=== PATIENT | female | born 1955 | race Hispanic/Latino ===

== ENCOUNTER 2019-06-01 14:33 | Emergency (ER) | payer SELFPAY ==
[~2019-06-01] VITALS: Ht 152.4 cm; Wt 86.2 kg
--- OUTSIDE RECORDS SUMMARY | 2019-06-01 14:36 | XMS REPORT ---
Author Author [facility] Address Unknown Phone Unavailable Care Team Providers Care Junior Systems Analyst Name Role Phone Unavailable Unavailable Problems This patient has no known problems. Allergies, Adverse Reactions, Alerts This patient has no known allergies or adverse reactions. Medications This patient has no known medications. Encounters Start Date/Time End Date/Time Encounter Type Admission Type Attending [facility] Care Department Encounter ID 2019-06-03 00:00:00 2019-06-03 00:00:00 Outpatient [facility] [id number] 2019-05-07 12:26:44 2019-05-07 12:26:44 Outpatient [facility] [id number] 2019-05-07 00:00:00 2019-05-07 00:00:00 Outpatient [facility] [id number] 2019-04-12 00:00:00 2019-04-12 00:00:00 Outpatient [facility] [id number] 2019-03-25 00:00:00 2019-03-25 00:00:00 Outpatient [facility] [id number] 2019-03-12 14:25:22 2019-03-12 14:25:22 Outpatient [facility] [id number] 2019-02-11 09:01:01 2019-02-11 09:01:01 Outpatient [facility] [id number] 2019-02-06 12:58:03 2019-02-06 12:58:03 Outpatient [facility] [id number] 2019-01-22 07:55:19 2019-01-22 07:55:19 Outpatient [facility] [id number] 2019-01-17 15:06:30 2019-01-17 15:06:30 Outpatient [facility] [id number] 2019-01-07 09:29:52 2019-01-07 09:29:52 Outpatient [facility] [id number] 2019-01-07 08:35:23 2019-01-07 08:35:23 Outpatient [facility] [id number] 2019-01-07 00:00:00 2019-01-07 00:00:00 Outpatient [facility] [id number] 2018-12-13 14:40:10 2018-12-13 14:40:10 Outpatient [facility] [id number] 2018-03-20 00:00:00 2018-03-20 00:00:00 Outpatient [facility] [id number] 2018-02-19 14:29:43 2018-02-19 14:29:43 Outpatient [facility] [id number] 2018-02-14 13:41:30 2018-02-14 13:41:30 Outpatient [facility] [id number] 2018-01-25 00:00:00 2018-01-25 00:00:00 Outpatient [facility] [id number] 2018-01-01 00:00:00 2018-01-01 00:00:00 Outpatient [facility] [id number] 2017-12-29 12:44:58 2017-12-29 12:44:58 Outpatient [facility] [id number] 2017-12-18 00:00:00 2017-12-18 00:00:00 Outpatient [facility] [id number] 2017-12-13 00:00:00 2017-12-13 00:00:00 Outpatient [facility] [id number] 2017-11-27 00:00:00 2017-11-27 00:00:00 Outpatient [facility] [id number] 2017-11-15 11:59:49 2017-11-15 11:59:49 Outpatient [facility] [id number] 2017-11-15 00:00:00 2017-11-15 00:00:00 Outpatient [facility] [id number] 2017-11-07 00:00:00 2017-11-07 00:00:00 Outpatient [facility] [id number] 2017-11-06 15:53:28 2017-11-06 15:53:28 Outpatient [facility] [id number] 2017-10-30 13:08:30 2017-10-30 13:08:30 Outpatient [facility] [id number] 2017-10-30 12:54:40 2017-10-30 12:54:40 Outpatient [facility] [id number] 2017-10-26 00:00:00 2017-10-26 00:00:00 Outpatient [facility] [id number] 2017-10-23 10:31:46 2017-10-23 10:31:46 Outpatient [facility] [id number] 2017-10-10 11:19:43 2017-10-10 11:19:43 Outpatient [facility] [id number] 2017-10-04 09:34:32 2017-10-04 09:34:32 Outpatient [facility] [id number] 2017-01-04 00:00:00 2017-01-04 00:00:00 Outpatient [facility] [id number]
[2019-06-01] MEDS: HYDROCODONE/APAP 5MG-325MG TAB PO ONE (15:17)
[2019-06-01] MEDS: TETANUS/DIPHTHERIA TOX ADULT 0.5 ML SYR IM ONE (15:17)
[2019-06-01] MEDS: ONDANSETRON HCL 4 MG ORAL DISINTEGRATING TAB PO ONE (15:17)
--- NOTE | 2019-06-01 17:16 | Diagnostic Imaging Report ---
HIP RIGHT 2-3 VW (+/- PELVIS), KNEE RIGHT THREE VIEWS - 3 views HISTORY: Pain COMPARISON: None available. FINDINGS: Bones: There is a minimally displaced fracture of the patella. Osseous alignment is within normal limits. Joints: Digital changes are seen. Soft tissues: The soft tissues appear unremarkable. IMPRESSION: Minimally displaced fracture of the patella Signed by: David Moses MD on 06/01/2019 5:12 PM
[2019-06-01 18:17] VITALS: BP 130/73
== END 2019-06-01 18:24 | disposition home or self-care (01) ==
LOC: ER 14:33
DX: M25.561 Pain in right knee (principal); S82.034A Nondisplaced transverse fracture of right patella, initial encounter for closed fracture; M25.551 Pain in right hip; W01.0XXA Fall on same level from slipping, tripping and stumbling without subsequent striking against object, initial encounter; Y92.008 Other place in unspecified non-institutional (private) residence as the place of occurrence of the external cause; I10 Essential (primary) hypertension; E11.9 Type 2 diabetes mellitus without complications
CPT/HCPCS: 29530; 73502; 73562; 90471; 90714; 99284; Q0162